=== PATIENT | male | born 1995 | race Caucasian/White ===

== ENCOUNTER 2024-08-15 15:03 | Emergency (ER) | payer OTHER ==
[~2024-08-15] VITALS: Ht 177.8 cm; Wt 73.5 kg
[2024-08-15 15:38] VITALS: BP 135/87; PULSE 73; RESP 16; TEMP 98; O2SAT 98
[2024-08-15] MEDS: KETOROLAC 30 MG/ML VIAL IM ONE (16:26)
[2024-08-15] MEDS ORDERED: IBUP-2213 PO (16:33)
[2024-08-15] MEDS ORDERED: ACET500T99 PO (16:33)
[2024-08-15 16:55] VITALS: BP 130/87; PULSE 70; RESP 16; TEMP 98; O2SAT 99
== END 2024-08-15 16:55 | disposition home or self-care (01) ==
LOC: MED 15:03
DX: S52.571A Other intraarticular fracture of lower end of right radius, initial encounter for closed fracture (principal); Z79.899 Other long term (current) drug therapy; V89.2XXA Person injured in unspecified motor-vehicle accident, traffic, initial encounter; Y93.89 Activity, other specified; Y92.410 Unspecified street and highway as the place of occurrence of the external cause; Y99.8 Other external cause status
CPT/HCPCS: 29125; 73110; 96372; 99283; J1885